=== PATIENT | female | born 1940 | race African-American/Black ===

== ENCOUNTER 2018-06-22 11:58 | Emergency (ER) | payer MEDICARE, MEDICAID ==
[~2018-06-22] VITALS: Ht 162.6 cm; Wt 78.0 kg
[~2018-06-22 11:58] MED LIST: ATEN100T PO; DOCU250C87 PO; HYDR-3927 PO; LACT10SO PO; METF-414 PO; OLME40TA11 PO
[2018-06-22 14:41] LABS: BASOPHILS % 0.9 % (0.0-2.0); EOSINOPHILS % 7.6 % (0.0-5.0); HEMATOCRIT. 33.3 % (36.0-48.0); HEMOGLOBIN. 10.9 g/dL (12.0-16.0); LYMPHOCYTES % 23.5 % (20.0-50.0); MEAN CORPUSCULAR VOLUME 85.2 fL (81.0-99.0); MEAN PLATELET VOLUME 9.4 fl (7.4-10.4); MONOCYTES % 6.3 % (2.0-8.0); NEUTROPHILS % 61.7 % (40.0-76.0); PLATELET 205 x1000/uL (130-400); RED CELL DISTRIBUTION WIDTH 13.7 % (11.6-14.6)
[2018-06-22 14:43] LABS: CHLORIDE 106 mEq/L (98-107)
[2018-06-22 16:01] VITALS: BP 184/80
== END 2018-06-22 16:16 | disposition home or self-care (01) ==
LOC: ER 11:58
DX: I10 Essential (primary) hypertension (principal); D64.9 Anemia, unspecified; N28.9 Disorder of kidney and ureter, unspecified; E11.9 Type 2 diabetes mellitus without complications; G31.89 Other specified degenerative diseases of nervous system; Z98.890 Other specified postprocedural states; Z96.649 Presence of unspecified artificial hip joint; Z79.899 Other long term (current) drug therapy
CPT/HCPCS: 36415; 84484; 93005; 99284

== ENCOUNTER 2021-01-16 14:39 | Emergency (ER) | payer MEDICARE, MEDICAID ==
[~2021-01-16] VITALS: Ht 157.5 cm; Wt 70.0 kg
[~2021-01-16 14:39] MED LIST changes: +DOCU250C21 PO; -DOCU250C87 PO
[2021-01-16 14:40] VITALS: BP 136/70
[2021-01-16] MEDS ORDERED: ACETAMINOPHEN 325MG TABLET PO ONE (17:15)
[2021-01-16] MEDS ORDERED: ACET-2708 MT (18:04)
== END 2021-01-16 19:08 | disposition home or self-care (01) ==
LOC: ER 14:39
DX: M25.552 Pain in left hip (principal); R26.2 Difficulty in walking, not elsewhere classified; I10 Essential (primary) hypertension; E11.9 Type 2 diabetes mellitus without complications; H40.9 Unspecified glaucoma; Z96.642 Presence of left artificial hip joint; Z96.653 Presence of artificial knee joint, bilateral
CPT/HCPCS: 73502; 99283

== ENCOUNTER 2023-08-06 09:05 | Emergency (ER) | payer MEDICARE, MEDICAID ==
[~2023-08-06] VITALS: Ht 165.1 cm; Wt 73.0 kg
[~2023-08-06 09:05] MED LIST changes: +ACET-2708 MT; -DOCU250C21 PO; +[UNRECOGNIZED DRUG - CODE] PO
[2023-08-06 09:06] VITALS: O2SAT 99
[2023-08-06] MEDS ORDERED: MORPHINE SULFATE 4 MG/ML CPJ (NOT FOR IM USE) IV NR (10:39)
[2023-08-06] MEDS ORDERED: KETAMINE HCL 50 MG/ML 10ML IV NR (10:45)
[2023-08-06 11:51] VITALS: BP 169/76; PULSE 82; RESP 14; TEMP 98.1
[2023-08-06 12:08] LABS: BASOPHILS % 0.2 % (0.0-2.0); EOSINOPHILS % 0.2 % (0.0-5.0); HEMATOCRIT. 31.8 % (36.0-48.0); HEMOGLOBIN. 10.1 g/dL (12.0-16.0); LYMPHOCYTES % 10.3 % (20.0-50.0); MEAN CORPUSCULAR HEMOGLOBIN 27.3 pg (28.0-32.0); MEAN CORPUSCULAR HGB CONC 31.9 g/dL (31.0-37.0); MEAN CORPUSCULAR VOLUME 85.7 fL (81.0-99.0); MEAN PLATELET VOLUME 9.1 fl (7.4-10.4); MONOCYTES % 4.5 % (2.0-8.0); NEUTROPHILS % 84.8 % (40.0-76.0); PLATELET 180 x1000/uL (130-400); RED BLOOD CELL COUNT 3.72 mill/uL (4.2-5.4); RED CELL DISTRIBUTION WIDTH 13.4 % (11.6-14.6); WHITE BLOOD COUNT 7.1 x1000/uL (4.5-11.0)
[2023-08-06 12:23] LABS: PROTHROMBIN TIME 10.3 sec (9.6-11.0)
[2023-08-06 12:34] LABS: ALANINE AMINOTRANSFERASE 10 IU/L (10-49); ALBUMIN 4.4 g/dL (3.2-4.8); ASPARTATE AMINOTRANSFERASE 17 IU/L (<34); BILIRUBIN TOTAL 0.5 mg/dL (0.1-1.0); CALCIUM 9.9 mg/dL (8.7-10.4); CARBON DIOXIDE 24 mEq/L (21-32); CHLORIDE 105 mEq/L (98-107); CREATININE 1.2 mg/dL (0.6-1.0); GLUCOSE 187 mg/dL (70-105); POTASSIUM 4.4 mEq/L (3.5-5.1); PROTEIN TOTAL 7.9 g/dL (6.0-8.3); SODIUM 137 mEq/L (136-145); UREA NITROGEN BLOOD 39 mg/dL (9-23)
== END 2023-08-06 14:18 | disposition short-term general hospital (02) ==
LOC: ER 09:05 → EDBEDREQ 11:29 → ER 14:18 → CANBEDREQ 08-08 04:13
DX: M25.572 Pain in left ankle and joints of left foot (principal); I10 Essential (primary) hypertension; E11.9 Type 2 diabetes mellitus without complications; Z98.890 Other specified postprocedural states; W18.09XA Striking against other object with subsequent fall, initial encounter; Y93.89 Activity, other specified; Y92.89 Other specified places as the place of occurrence of the external cause; Y99.8 Other external cause status
CPT/HCPCS: 99285; 96374; 29515; 71045; 96375; 80053; 85025; 85610; 86850; 86900; 86901; 36415; 73610; J3490; J2270